=== PATIENT | female | born 1995 | race Caucasian/White ===

== ENCOUNTER 2018-07-09 17:06 | Emergency (ER) | payer SELFPAY ==
[~2018-07-09] VITALS: Ht 162.6 cm; Wt 63.6 kg
[2018-07-09 17:13] VITALS: BP 159/60
[2018-07-09] MEDS ORDERED: DULO20CA30 PO (17:15)
[2018-07-09] MEDS ORDERED: RISP3 PO (17:15)
[2018-07-09 19:29] LABS: BASOPHILS % (AUTO) 1.3 % (0.0-2.0); EOSINOPHILS % (AUTO) 1.2 % (1.0-6.0); HEMATOCRIT 40.2 % (36-46); HEMOGLOBIN 13.6 g/dL (12.0-16.0); LYMPHOCYTES % (AUTO) 30.7 % (22.0-44.0); MEAN CORPUSCULAR HEMOGLOBIN 30.4 pg (26.0-34.0); MEAN CORPUSCULAR HGB CONC 33.8 G/dL (31.0-37.0); MEAN CORPUSCULAR VOLUME 90 fL (80-100); MONOCYTES # (AUTO) 0.5 K/uL (0.1-1.0); MONOCYTES % (AUTO) 5.5 % (2.0-9.0); NEUTROPHILS % (AUTO) 61.3 % (40.0-70.0); PLATELET COUNT (AUTO) 327 K/uL (150-450); RED BLOOD CELL COUNT(AUTO) 4.46 MIL/uL (4.00-5.20); RED CELL DISTRIBUTION WIDTH 12.7 % (11.5-14.5)
[2018-07-09 20:00] LABS: ANION GAP 6 mmol/L (8-16); CARBON DIOXIDE 32 mmol/L (22-29); CHLORIDE 102 mmol/L (98-107); CREATININE 0.71 mg/dL (0.60-1.30); GLOMERULAR FILTR. RATE CALC > 60 mL/min (>60); GLUCOSE,RANDOM 98 mg/dL (70-110); POTASSIUM 3.7 mmol/L (3.5-5.1); SODIUM SERUM 140 mmol/L (136-145); UREA NITROGEN, BLOOD 13 mg/dL (7-18)
[2018-07-09 20:10] LABS: ALANINE AMINOTRANSFERASE 39 U/L (12-78); ALKALINE PHOSPHATASE 94 U/L (46-116); ASPARTATE AMINOTRANSFERASE 25 U/L (15-37); BILIRUBIN,TOTAL 0.2 mg/dL (0.1-1.0); HCG,QUANTITATIVE < 1 mIU/mL (0-6)
[2018-07-09 20:14] LABS: AMPHET/METH SCREEN,URINE POSITIVE (NEGATIVE); BARBITURATE SCREEN, URINE NEGATIVE (NEGATIVE); BENZODIAZEPINES SCREEN,URINE NEGATIVE (NEGATIVE); CANNABINOID SCREEN,URINE POSITIVE (NEGATIVE); COCAINE SCREEN,URINE NEGATIVE (NEGATIVE); METHADONE SCREEN, URINE NEGATIVE (NEGATIVE); OPIATE SCREEN,URINE NEGATIVE (NEGATIVE); PHENCYCLIDINE SCREEN,URINE NEGATIVE (NEGATIVE)
== END 2018-07-09 20:20 | disposition left against medical advice (07) ==
LOC: EMS 17:08
DX: F41.9 Anxiety disorder, unspecified (principal); F22 Delusional disorders; Z53.21 Procedure and treatment not carried out due to patient leaving prior to being seen by health care provider
CPT/HCPCS: 36415; 80053; 80307; 84702; 85025; G0480

== ENCOUNTER 2018-10-08 13:19 | Inpatient (IN) | payer MEDICAID ==
[~2018-10-08] VITALS: Ht 165.1 cm; Wt 71.7 kg
[~2018-10-08 13:19] MED LIST: DULO20CA30 PO; RISP3 PO
[2018-10-08 13:27] VITALS: BP 124/66
[2018-10-08] MEDS ORDERED: HALOPERIDOL 5 MG TABLET PO PRN (13:45)
[2018-10-08] MEDS ORDERED: LOPERAMIDE HCL 2 MG CAPSULE PO PRN (14:00)
[2018-10-08] MEDS ORDERED: GuaiFENesin/D-METHORPHAN [SUGAR-FREE] 200-20MG/10 ML SYRUP UDCUP PO PRN (14:00)
[2018-10-08] MEDS ORDERED: ACETAMINOPHEN 325 MG TABLET PO PRN (14:00)
[2018-10-08] MEDS ORDERED: MAGNESIUM HYDROXIDE SUSPENSION 30 ML UDCUP PO PRN (14:00)
[2018-10-08] MEDS ORDERED: ONDANSETRON HCL 4 MG TABLET PO PRN (14:00)
[2018-10-08] MEDS ORDERED: ALBUTEROL SULFATE HFA 90 MCG/PUFF 8 GM INHALER IH PRN (14:00)
[2018-10-08] MEDS ORDERED: CloNIDine HCL 0.1 MG TABLET PO PRN (14:00)
[2018-10-08] MEDS ORDERED: MAG HYDROX/AL HYDROX/SIMETH ES 30 ML SUSPENSION UDCUP PO PRN (14:00)
[2018-10-08] MEDS ORDERED: DOCUSATE SODIUM 100 MG CAPSULE PO PRN (14:00)
[2018-10-08] MEDS ORDERED: IBUPROFEN 400 MG TABLET PO PRN (14:00)
[2018-10-08] MEDS ORDERED: PETROLATUM,WHITE 28 GM JELLY TP PRN (14:00)
[2018-10-08] MEDS ORDERED: ARIP10TA8 PO (14:27)
[2018-10-08] MEDS ORDERED: QUET100T PO (14:27)
[2018-10-08] MEDS ORDERED: BENZ2TAB10 PO (14:27)
[2018-10-08 14:43] VITALS: BP 113/70
[2018-10-08 16:55] VITALS: BP 114/74
[2018-10-08] MEDS: LORazepam 2 MG TABLET PO PRN (17:33)
[2018-10-09 05:22] VITALS: BP 110/70
[2018-10-09 08:16] VITALS: BP 118/72
[2018-10-09 08:19] LABS: EOSINOPHILS % (AUTO) 1.5 % (1.0-6.0); HEMATOCRIT 40.9 % (36-46); HEMOGLOBIN 13.7 g/dL (12.0-16.0); LYMPHOCYTES # (AUTO) 1.7 K/uL (1.0-4.8); LYMPHOCYTES % (AUTO) 26.5 % (22.0-44.0); MEAN CORPUSCULAR HEMOGLOBIN 30.6 pg (26.0-34.0); MEAN CORPUSCULAR HGB CONC 33.4 G/dL (31.0-37.0); MEAN CORPUSCULAR VOLUME 92 fL (80-100); MONOCYTES # (AUTO) 0.2 K/uL (0.1-1.0); MONOCYTES % (AUTO) 3.8 % (2.0-9.0); NEUTROPHILS # (AUTO) 4.2 K/uL (1.8-7.7); NEUTROPHILS % (AUTO) 67.2 % (40.0-70.0); PLATELET COUNT (AUTO) 266 K/uL (150-450); RED BLOOD CELL COUNT(AUTO) 4.47 MIL/uL (4.00-5.20); RED CELL DISTRIBUTION WIDTH 12.7 % (11.5-14.5)
[2018-10-09 08:20] LABS: HEMOGLOBIN A1C 5.5 % (4.5-6.2)
[2018-10-09 08:26] LABS: AMPHET/METH SCREEN,URINE NEGATIVE (NEGATIVE); BARBITURATE SCREEN, URINE NEGATIVE (NEGATIVE); BENZODIAZEPINES SCREEN,URINE NEGATIVE (NEGATIVE); CANNABINOID SCREEN,URINE NEGATIVE (NEGATIVE); COCAINE SCREEN,URINE NEGATIVE (NEGATIVE); METHADONE SCREEN, URINE NEGATIVE (NEGATIVE); OPIATE SCREEN,URINE NEGATIVE (NEGATIVE)
[2018-10-09 08:29] LABS: PHENCYCLIDINE SCREEN,URINE NEGATIVE (NEGATIVE)
[2018-10-09 08:42] LABS: APPEARANCE,URINE CLOUDY (CLEAR); BILIRUBIN,URINE NEGATIVE (NEGATIVE); GLUCOSE, URINE (UA) NEGATIVE (NEGATIVE); KETONES,URINE NEGATIVE (NEGATIVE); LEUKOCYTE ESTERASE ,URINE MODERATE (NEGATIVE); NITRATE,URINE POSITIVE (NEGATIVE); PROTEIN,URINE NEGATIVE (NEGATIVE); UROBILINOGEN,URINE 0.2 mg/dL (<=1.0)
[2018-10-09 08:43] LABS: OCCULT BLOOD,URINE MODERATE (NEGATIVE)
[2018-10-09 08:44] LABS: BACTERIA,URINE Many /HPF (None Seen); SQUAMOUS EPITHELIAL CELL,UR Moderate /LPF (None Seen)
[2018-10-09 08:47] LABS: ALANINE AMINOTRANSFERASE 12 U/L (12-78); ALBUMIN 4.1 g/dL (3.4-5.0); ALKALINE PHOSPHATASE 76 U/L (46-116); ANION GAP 11 mmol/L (8-16); ASPARTATE AMINOTRANSFERASE 8 U/L (15-37); BILIRUBIN,TOTAL 0.4 mg/dL (0.1-1.0); CALCIUM, TOTAL 9.5 mg/dL (8.8-10.5); CARBON DIOXIDE 24 mmol/L (22-29); CHLORIDE 105 mmol/L (98-107); CHOL/HDL RATIO 3.6 (3.9-5.7); CHOLESTEROL 138 mg/dL (131-200); CREATININE 0.71 mg/dL (0.60-1.30); FREE T4 (FREE THYROXINE) 0.84 ng/dL (0.76-1.46); GLOMERULAR FILTR. RATE CALC > 60 mL/min (>60); GLUCOSE,RANDOM 110 mg/dL (70-110); HCG,QUANTITATIVE < 1 mIU/mL (0-6); HDL CHOLESTEROL 38 mg/dL (40-60); LDL CHOL (CALC.) 91 mg/dL (0-130); POTASSIUM 4.1 mmol/L (3.5-5.1); SODIUM SERUM 140 mmol/L (136-145); THYROID STIMULATING HORMONE 0.39 uIU/mL (0.36-3.74); TOTAL PROTEIN, SERUM 6.8 g/dL (6.4-8.2); TRIGLYCERIDES 44 mg/dL (15-150); UREA NITROGEN, BLOOD 13 mg/dL (7-18)
[2018-10-09] MEDS: NICOTINE 14 MG/24 HOUR PATCH TD PRN (13:29)
[2018-10-09] MEDS: ARIPiprazole 10 MG TABLET PO SCH (13:30)
[2018-10-09] MEDS: LORazepam 2 MG TABLET PO PRN ×2 (13:36→17:54)
[2018-10-09 16:34] VITALS: BP 100/60
[2018-10-09 17:28] VITALS: BP 112/65
[2018-10-09] MEDS ORDERED: MIRTAZAPINE 15 MG TABLET PO SCH (21:00)
[2018-10-10] MEDS: LORazepam 2 MG TABLET PO PRN ×3 (05:11→16:15)
[2018-10-10 06:06] VITALS: BP 110/66
[2018-10-10 08:12] VITALS: BP 106/72
[2018-10-10] MEDS: ARIPiprazole 10 MG TABLET PO SCH (08:49)
[2018-10-10] MEDS: NICOTINE 14 MG/24 HOUR PATCH TD PRN (08:58)
[2018-10-10 16:01] VITALS: BP 111/78
[2018-10-10] MEDS ORDERED: MIRTAZAPINE 30 MG TABLET PO SCH (21:00)
[2018-10-11 04:15] VITALS: BP 112/70
[2018-10-11] MEDS: NICOTINE 14 MG/24 HOUR PATCH TD PRN (06:41)
[2018-10-11] MEDS: ARIPiprazole 15 MG TABLET PO SCH (08:00)
[2018-10-11] MEDS: LORazepam 2 MG TABLET PO PRN ×3 (08:01→17:10)
[2018-10-11 08:17] VITALS: BP 114/73
[2018-10-11 16:20] VITALS: BP 106/75
[2018-10-11] MEDS: CIPROFLOXACIN HCL 500 MG TABLET PO SCH (17:10)
[2018-10-11] MEDS: ZOLPIDEM TARTRATE 10 MG TABLET PO PRN (21:23)
[2018-10-11] MEDS: MIRTAZAPINE 30 MG TABLET PO SCH (21:23)
[2018-10-12 02:25] VITALS: BP 107/71
[2018-10-12] MEDS: LORazepam 2 MG TABLET PO PRN ×3 (02:34→12:18)
[2018-10-12] MEDS: NICOTINE 14 MG/24 HOUR PATCH TD PRN (02:34)
[2018-10-12] MEDS: ARIPiprazole 15 MG TABLET PO SCH (08:19)
[2018-10-12] MEDS: CIPROFLOXACIN HCL 500 MG TABLET PO SCH ×2 (08:19→16:49)
[2018-10-12 08:26] VITALS: BP 110/72
[2018-10-12] MEDS ORDERED: FLUTICASONE PROPIONATE 50 MCG/SPRAY 16 GM NASAL SPRAY NASAL PRN (08:45)
[2018-10-12 16:16] VITALS: BP 108/72
[2018-10-12] MEDS: MIRTAZAPINE 30 MG TABLET PO SCH (20:28)
[2018-10-12] MEDS: ZOLPIDEM TARTRATE 10 MG TABLET PO PRN (20:28)
[2018-10-13 06:19] VITALS: BP 115/72
[2018-10-13] MEDS: NICOTINE 14 MG/24 HOUR PATCH TD PRN (06:37)
[2018-10-13] MEDS: CIPROFLOXACIN HCL 500 MG TABLET PO SCH (08:22)
[2018-10-13] MEDS: LORazepam 2 MG TABLET PO PRN ×2 (08:22→13:57)
[2018-10-13] MEDS: ARIPiprazole 15 MG TABLET PO SCH (08:22)
[2018-10-13] MEDS ORDERED: ARIP15TA2 PO (13:25)
[2018-10-13] MEDS ORDERED: MIRT15 PO (13:25)
[2018-10-13] MEDS ORDERED: CIPR-278 PO (13:25)
== END 2018-10-13 15:01 | disposition home or self-care (01) | DRG 750 ==
LOC: B3A 13:42
PROVIDERS: ADMIT Psychiatry & Neurology Psychiatry; ATTEND Psychiatry & Neurology Psychiatry
DX: F25.1 Schizoaffective disorder, depressive type (principal); R45.851 Suicidal ideations; F19.90 Other psychoactive substance use, unspecified, uncomplicated; F41.9 Anxiety disorder, unspecified; J30.9 Allergic rhinitis, unspecified; K59.00 Constipation, unspecified; R45.87 Impulsiveness; F15.90 Other stimulant use, unspecified, uncomplicated; F60.3 Borderline personality disorder
CPT/HCPCS: 80307; 83036; 84439; 84443; 87081; 87086